=== PATIENT | male | born 1965 | race Caucasian/White ===

== ENCOUNTER 2017-09-26 10:59 | Emergency (ER) | payer MEDICAID ==
[2017-09-26 11:04] VITALS: BMI 24.2
[2017-09-26 11:16] VITALS: RESP 18
[2017-09-26] MEDS ORDERED: Sodium Chloride 0.9% 1,000 ML IV STA ×2 (11:52→14:21)
[2017-09-26 13:49] VITALS: TEMP 99.4; O2SAT 100
--- NOTE | 2017-09-26 14:20 | RAD ---
HISTORY: cough/fever COMPARISON: No prior. TECHNIQUE: Chest PA and lateral FINDINGS: LUNGS: No active pulmonary disease. PLEURA: No significant pleural effusion identified. No pneumothorax apparent. CARDIOVASCULAR: Normal. OSSEOUS STRUCTURES: No significant abnormalities. VISUALIZED UPPER ABDOMEN: Normal. OTHER FINDINGS: None. IMPRESSION: No active disease.
[2017-09-26 14:42] LABS: GRAN # 6.25 (1.4-6.5); GRAN % 76.1 % (50.0-68.0); HEMOGLOBIN 12.3 g/dL (14.0-18.0); LYMPH # 0.8 (1.2-3.4); LYMPH % 10.1 % (22.0-35.0); MEAN CELL VOLUME 87.3 fl (80.0-105.0); MEAN CORPUSCULAR HEMOGLOBIN 29.6 pg (25.0-35.0); MEAN CORPUSCULAR HGB CONC 33.9 g/dl (31.0-37.0); MEAN PLATELET VOLUME 9.3 fl (7.0-11.0); MONO # 1.1 (0.1-0.6); MONO % 13.8 % (1.0-6.0); RBC 4.16 10^6/uL (3.5-6.1); RED CELL DISTRIBUTION WIDTH 13.4 % (11.5-14.5); WHITE BLOOD COUNT 8.2 10^3/ul (4.5-11.0)
[2017-09-26 14:53] LABS: ALB/GLOB RATIO 1.3 (1.1-1.8); ALBUMIN 3.9 g/dL (3.0-4.8); ALT/SGPT 35 U/L (7-56); AST/SGOT 49 U/L (17-59); BLOOD UREA NITROGEN 13 mg/dL (7-21); GFR AFRICAN-AMERICAN > 60; GFR NON-AFRICAN AMERICAN > 60
--- NOTE | 2017-09-26 15:50 | ED PDOC ---
Arrival/HPI - General Chief Complaint: Flu-like Symptoms Time Seen by Provider: 09/26/17 11:11 Historian: Patient - History of Present Illness Narrative History of Present Illness (Text): 09/26/17 15:44 51-year-old male on methadone presents today with a 2 day history of cough and nasal congestion sore throat and body aches and fatigue. Patient states he was unable to make it to his methadone clinic today because he was not feeling well so he came to the emergency room. He denies chest pain or shortness of breath. No medications have been taken for pain at home. Patient denies abdominal pain. No nausea or vomiting. Denies dizziness. Time/Duration: Other (2 days) Symptom Onset: Gradual Symptom Course: Worsening Quality: Aching Severity Level: 7 Past Medical History - Provider Review Nursing Documentation Reviewed: Yes - Travel History Have you recently traveled outside [place] w/in the past 3 mons?: No - Infectious Disease Hx of Infectious Diseases: None - Tetanus Immunization Tetanus Immunization: Up to Date - Past Medical History Past Medical History: Non-Contributing - Cardiac Hx Hypertension: Yes - Psychiatric Hx Depression: No Hx Emotional Abuse: No Hx Physical Abuse: No Hx Substance Use: Yes (on methadone) - Past Surgical History Past Surgical History: No Previous - Anesthesia Hx Anesthesia: No Hx Anesthesia Reactions: No Hx Malignant Hyperthermia: No - Suicidal Assessment Feels Threatened In Home Enviroment: No Family/Social History - Physician Review Nursing Documentation Reviewed: Yes Family/Social History: Unknown Family HX Smoking Status: Light Smoker < 10 Cigarettes Daily Hx Alcohol Use: Yes Hx Substance Use: Yes (on methadone) Hx Substance Use Treatment: No Allergies/Home Meds Allergies/Adverse Reactions: Allergies No Known Allergies Allergy (Verified 09/05/15 20:55) Review of Systems - Review of Systems Constitutional: Fatigue, Fevers ENT: Sore Throat, Sinus Congestion Respiratory: Cough. absent: SOB Cardiovascular: absent: Chest Pain, Palpitations Gastrointestinal: absent: Abdominal Pain, Nausea, Vomiting Genitourinary Male: absent: Dysuria Musculoskeletal: absent: Arthralgias Skin: absent: Rash, Pruritis Neurological: absent: Headache, Dizziness Psychiatric: absent: Anxiety, Depression, Suicidal Ideation Physical Exam Vital Signs Reviewed: Yes Vital Signs Temp Pulse Resp BP Pulse Ox 09/26/17 16:14 76 18 131/94 H 100 09/26/17 15:04 67 18 122/64 100 02/09/18 13:48 99.4 F 76 18 112/67 100 09/26/17 11:27 100.9 F H 09/26/17 11:11 100.6 F H 112 H 18 117/71 95 Temperature: Febrile Blood Pressure: Normal Pulse: Tachycardic Respiratory Rate: Normal Appearance: Positive for: Well-Appearing, Non-Toxic, Comfortable Pain Distress: None Mental Status: Positive for: Alert and Oriented X 3 - Systems Exam Head: Present: Atraumatic Conjunctiva: Present: Normal Ears: Present: Normal Mouth: Present: Moist Mucous Membranes Pharnyx: Present: Normal. No: ERYTHEMA, EXUDATE, TONSILS ENLARGED, Peritonsilar Swelling, Uvular Deviation, Muffled/Hoarse Voice Nose (External): Present: Atraumatic Nose (Internal): Present: Normal Inspection Neck: Present: Normal Range of Motion Respiratory/Chest: Present: Clear to Auscultation, Good Air Exchange. No: Respiratory Distress, Accessory Muscle Use Cardiovascular: Present: Regular Rate and Rhythm, Normal S1, S2. No: Murmurs Abdomen: No: Tenderness Neurological: Present: GCS=15, Speech Normal Skin: Present: Warm, Dry, Normal Color. No: Rashes Psychiatric: Present: Alert, Oriented x 3 Medical Decision Making ED Course and Treatment: 09/26/17 15:46 51-year-old male with flulike symptoms low-grade fever and tachycardia in the emergency room Tylenol and Motrin given for pain/fever reduction Rapid flu positive Chest x-ray shows no infiltrate or effusion as read by the radiologist CBC within normal limits CMP within normal limits Patient was given 2 L of normal saline IV bolus Patient reassessment, patient feeling better after medications. Vital signs are stable. Patient is requesting his methadone dose. Patient states he was unable to make it to [facility] today. I called the [facility]; [phone]. I spoke with the nurse then was able to verify the patient's 100 mg methadone dose. Last dose was yesterday. metadone 100mg Given PO. Patient reassessment: Patient feeling better. Vital signs are stable. I discussed the results and the patient advised increasing fluids, taking Tamiflu, Motrin for fever. Advised immediate return is symptoms worsen persist or if new concerning symptoms develop Patient verbalizes understanding of discharge instructions and need for immediate followup. all aspects of this case were discussed the attending of record. impression; influenza Motrin one tablet every 6 hours as needed for pain Tamiflu; 1 tablet twice daily x 5 days. Increase fluids Followup with primary care physician the next 2 days Return if symptoms worsen persist or if new symptoms develop; high fevers, increasing weakness, dizziness, chest pain, shortness of breath, or if any other concerning symptoms develop. - Lab Interpretations Lab Results: 09/26/17 14:35 09/26/17 14:35 Lab Results 09/26/17 14:35: WBC 8.2, RBC 4.16, Hgb 12.3 L, Hct 36.3 L, MCV 87.3, MCH 29.6, MCHC 33.9, RDW 13.4, Plt Count 152, MPV 9.3, Gran % 76.1 H, Lymph % (Auto) 10.1 L, [place] % (Auto) 13.8 H, Eos % (Auto) 0.0 L, Baso % (Auto) 0.0, Gran # 6.25, Lymph # (Auto) 0.8 L, [place] # (Auto) 1.1 H, Eos # (Auto) 0.0, Baso # (Auto) 0.00 09/26/17 14:35: Sodium 137, Potassium 4.2, Chloride 99, Carbon Dioxide 29, Anion Gap 13, BUN 13, Creatinine 1.1, Est GFR ( Amer) > 60, Est GFR (Non- Af Amer) > 60, Random Glucose 107, Calcium 9.0, Total Bilirubin 0.7, AST 49, ALT 35, Alkaline Phosphatase 62, Total Protein 6.9, Albumin 3.9, Globulin 3.0, Albumin/Globulin Ratio 1.3 09/26/17 11:15: Influenza Typ A,B (EIA) Pos for influenza a H - RAD Interpretation Radiology Orders: 09/26/17 11:52 CHEST TWO VIEWS (PA/LAT) [RAD] Stat - Medication Orders Current Medication Orders: Discontinued Medications Acetaminophen (Tylenol 325mg Tab) 975 mg PO STAT STA Stop: 09/26/17 11:17 Last Admin: 09/26/17 11:27 Dose: 975 mg MAR Pain/Vitals Document 09/26/17 11:27 GMD (Rec: 09/26/17 11:27 [facility]) Pain Reassessment Is This A Pain ReAssessment? No Sleep Is patient sleeping during reassessment? No Presence of Pain Presence of Pain Yes Vitals Temperature (97.6 F-99.6 F) 100.9 F Sodium Chloride (Sodium Chloride 0.9%) 1,000 mls @ 999 mls/hr IV .Q1H1M STA Stop: 09/26/17 12:52 Last Admin: 09/26/17 12:03 Dose: 999 mls/hr eMAR Start Stop Document 09/26/17 12:03 GMD (Rec: 09/26/17 12:03 [facility]) Intravenous Solution Start Date 09/26/17 Start Time 12:03 End Date 09/26/17 End time 13:04 Total Infusion Time 61 Sodium Chloride (Sodium Chloride 0.9%) 1,000 mls @ 999 mls/hr IV .Q1H1M STA Stop: 09/26/17 15:21 Last Admin: 09/26/17 14:35 Dose: 999 mls/hr eMAR Start Stop Document 09/26/17 14:35 GMD (Rec: 09/26/17 14:35 [facility]) Intravenous Solution Start Date 09/26/17 Start Time 14:35 End Date 09/26/17 End time 15:35 Total Infusion Time 60 Ketorolac Tromethamine (Toradol) 30 mg IVP STAT STA Stop: 09/26/17 11:53 Last Admin: 09/26/17 12:02 Dose: 30 mg MAR Pain Assessment Document 09/26/17 12:02 GMD (Rec: 09/26/17 12:02 [facility]) Pain Reassessment Is this a pain reassessment? No Sleep Is patient sleeping during reassessment? No Presence of Pain Presence of Pain Yes IVP Administration Document 09/26/17 12:02 GMD (Rec: 09/26/17 12:02 [facility]) Charges for Administration # of IVP Administrations 1 Methadone HCl (Methadone) 100 mg PO STAT STA Stop: 09/26/17 15:19 Last Admin: 09/26/17 15:44 Dose: 100 mg MAR Pain Assessment Document 09/26/17 15:44 GMD (Rec: 09/26/17 15:44 [facility] Pain Reassessment Is this a pain reassessment? No Oseltamivir Phosphate (Tamiflu Cap) 75 mg PO STAT STA PRN Reason: Protocol Stop: 09/26/17 11:43 Last Admin: 09/26/17 12:02 Dose: 75 mg Disposition/Present on Arrival - Present on Arrival Any Indicators Present on Arrival: No History of DVT/PE: No History of Uncontrolled Diabetes: No Urinary Catheter: No History of Decub. Ulcer: No History Surgical Site Infection Following: None - Disposition Have Diagnosis and Disposition been Completed?: Yes Diagnosis: Influenza Disposition: HOME/ ROUTINE Disposition Time: 15:51 Patient Plan: Discharge Condition: GOOD Discharge Instructions (ExitCare): Influenza (ED) Additional Instructions: Motrin one tablet every 6 hours as needed for pain Tamiflu; 1 tablet twice daily x 5 days. Increase fluids Followup with primary care physician the next 2 days Return if symptoms worsen persist or if new symptoms develop; high fevers, increasing weakness, dizziness, chest pain, shortness of breath, or if any other concerning symptoms develop. Prescriptions: Ibuprofen [Motrin] 600 mg PO Q6H PRN #20 tab PRN Reason: pain/fever reduction Oseltamivir [Tamiflu] 75 mg PO BID #10 cap Referrals: Efe Martinez [Primary Care Provider] - Follow up with primary Forms: [employer] (Danish)
[2017-09-26 16:14] VITALS: BP 131/94; PULSE 76
== END 2017-09-26 16:19 | disposition home or self-care (01) ==
LOC: ED 10:59
DX: J11.1 Influenza due to unidentified influenza virus with other respiratory manifestations (principal); F17.210 Nicotine dependence, cigarettes, uncomplicated
CPT/HCPCS: 71046; 80053; 85025; 87804; 96361; 96374; 99285; J1885; J7040